=== PATIENT | male | born 1945 | race Caucasian/White ===

== ENCOUNTER 2018-06-11 10:54 | Inpatient (IN) ==
[2018-06-11] MEDS ORDERED: ONDANSETRON 4 MG/2 ML VIAL IV PRN (13:21)
[2018-06-11] MEDS ORDERED: ACETAMINOPHEN 325 MG TABLET PO PRN (13:21)
[2018-06-11 15:03] LABS: Apearance,Urine Slightly Hazy (Clear); Bilirubin,Urine Negative (Negative); Blood, Urine Negative (Negative); Glucose,Urine (UA) Negative (Negative); Hyaline Casts,Urine 22 /LPF (0-3); Ketones,Urine Negative (Negative); Mucus,Urine Occasional /LPF (Occasional); Nitrite,Urine Negative (Negative); Protein,Urine 100 MG/DL; RBC,Urine 1 /HPF (0-4); Squamous Epithelial Cell,Urine Occasional /HPF (0-10); Urine Color Amber (Yellow); Urine Specific Gravity 1.014 (1.001-1.035); WBC,Urine 5 /HPF (0-6)
[2018-06-11] MEDS: SODIUM CHLORIDE 0.9% 1,000 ML IV SCH (16:07)
[2018-06-11 16:59] LABS: Basophils % 0.3 % (0.0-0.8); Eosinophils # 0.1 10*3/uL (0.0-0.87); Hemoglobin 11.5 GM/DL (14.0-18.0); Immature Granulocytes % 0.9 %; Immature Granulocytes Absolute 0.09 #; Lymphocytes # 1.7 10*3/uL (1.4-4.0); Lymphocytes % 16.7 % (21.2-54.2); Mean Corpuscular HGB Conc 34.8 GM/DL (32-36); Mean Corpuscular Hemoglobin 34 PG (27-34); Mean Corpuscular Volume 98.2 FL (87-102); Mean Platelet Volume 11.5 FL (9.6-12.0); Monocytes # 0.7 10*3/uL (0.11-0.8); Neutrophils # 7.5 10*3/uL (1.4-7.4); Neutrophils % 74.1 % (38.7-73.9); Platelet Count 165 T/CUMM (130-400); Red Blood Count 3.36 MC/CUMM (3.8-5.5); Red Cell Distribution Width 13.8 % (9.3-17.3); White Blood Count 10.1 T/CUMM (4-12)
[2018-06-11 17:18] LABS: Bilirubin,Total 0.6 MG/DL (0.2-1.0); Calcium 9.2 MG/DL (8.5-10.1); Osmolality,Calculated 289.2 MOS/KG (273-304); Potassium 3.7 MMOL/L (3.5-5.1); Total Protein 6.9 G/DL (6.4-8.3)
[2018-06-11] MEDS: DONEPEZIL HCL 10 MG PO SCH (21:39)
[2018-06-11] MEDS: MEMANTINE HCL 5 MG PO SCH (21:40)
[2018-06-11] MEDS: APIXABAN 2.5 MG PO SCH (21:40)
[2018-06-11] MEDS: ATORVASTATIN 20 MG PO SCH (21:41)
[2018-06-11] MEDS: DOCUSATE SODIUM 100 MG CAPSULE PO SCH (21:41)
[2018-06-12] MEDS: SODIUM CHLORIDE 0.9% 1,000 ML IV SCH ×2 (03:10→17:21)
[2018-06-12 05:18] LABS: Basophils # 0.1 10*3/uL (0.0-0.2); Basophils % 0.6 % (0.0-0.8); Eosinophils # 0.2 10*3/uL (0.0-0.87); Hematocrit 31.5 VOL% (42.0-52.0); Hemoglobin 10.8 GM/DL (14.0-18.0); Immature Granulocytes % 0.7 %; Immature Granulocytes Absolute 0.06 #; Lymphocytes # 1.7 10*3/uL (1.4-4.0); Lymphocytes % 19.1 % (21.2-54.2); Mean Corpuscular HGB Conc 34.3 GM/DL (32-36); Mean Corpuscular Hemoglobin 34 PG (27-34); Mean Corpuscular Volume 99.4 FL (87-102); Mean Platelet Volume 11.7 FL (9.6-12.0); Monocytes # 0.7 10*3/uL (0.11-0.8); Monocytes % 8.1 % (1.7-12.7); Neutrophils # 6.3 10*3/uL (1.4-7.4); Neutrophils % 69.5 % (38.7-73.9); Platelet Count 174 T/CUMM (130-400); Red Blood Count 3.17 MC/CUMM (3.8-5.5); Red Cell Distribution Width 13.6 % (9.3-17.3)
[2018-06-12 05:56] LABS: Potassium 3.3 MMOL/L (3.5-5.1)
[2018-06-12] MEDS: LEVOTHYROXINE 75 MCG PO SCH (06:26)
[2018-06-12] MEDS: DOCUSATE SODIUM 100 MG CAPSULE PO SCH ×2 (08:43→21:02)
[2018-06-12] MEDS: ALLOPURINOL 300 MG PO SCH (08:43)
[2018-06-12] MEDS: DILTIAZEM PO SCH (08:45)
[2018-06-12] MEDS: [UNRECOGNIZED DRUG - OTHER] PO SCH (08:45)
[2018-06-12] MEDS: TAMSULOSIN HCL 0.4 MG PO SCH (08:46)
[2018-06-12] MEDS: MEMANTINE HCL 5 MG PO SCH ×2 (08:46→21:01)
[2018-06-12] MEDS: APIXABAN 2.5 MG PO SCH ×2 (08:47→21:01)
[2018-06-12] MEDS: VITAMIN D3 2000 UNIT PO SCH (08:47)
[2018-06-12] MEDS: METOPROLOL SUCCINATE 100 MG PO SCH (08:48)
[2018-06-12] MEDS ORDERED: FUROSEMIDE 40 MG PO SCH (09:00)
[2018-06-12] MEDS ORDERED: LOSARTAN HCTZ PO SCH (09:00)
[2018-06-12] MEDS: POTASSIUM CHLORIDE 20 MEQ TABLET PO PRN ×3 (17:22→21:02)
[2018-06-12] MEDS: ATORVASTATIN 20 MG PO SCH (21:01)
[2018-06-12] MEDS: DONEPEZIL HCL 10 MG PO SCH (21:02)
[2018-06-13 04:38] LABS: Basophils % 0.4 % (0.0-0.8); Eosinophils # 0.3 10*3/uL (0.0-0.87); Eosinophils % 3.5 % (0.00-10.9); Hematocrit 33.3 VOL% (42.0-52.0); Hemoglobin 11.3 GM/DL (14.0-18.0); Immature Granulocytes % 0.4 %; Immature Granulocytes Absolute 0.03 #; Lymphocytes # 1.7 10*3/uL (1.4-4.0); Lymphocytes % 19.4 % (21.2-54.2); Mean Corpuscular HGB Conc 33.9 GM/DL (32-36); Mean Corpuscular Hemoglobin 34 PG (27-34); Mean Corpuscular Volume 98.8 FL (87-102); Mean Platelet Volume 11.4 FL (9.6-12.0); Monocytes # 0.6 10*3/uL (0.11-0.8); Monocytes % 7.3 % (1.7-12.7); Neutrophils # 5.9 10*3/uL (1.4-7.4); Platelet Count 192 T/CUMM (130-400); Red Blood Count 3.37 MC/CUMM (3.8-5.5); Red Cell Distribution Width 13.8 % (9.3-17.3); White Blood Count 8.5 T/CUMM (4-12)
[2018-06-13 04:59] LABS: Calcium 9.2 MG/DL (8.5-10.1); Osmolality,Calculated 290.7 MOS/KG (273-304)
[2018-06-13] MEDS: LEVOTHYROXINE 75 MCG PO SCH (06:15)
[2018-06-13] MEDS: SODIUM CHLORIDE 0.9% 1,000 ML IV SCH ×2 (06:45→16:07)
[2018-06-13] MEDS: MEMANTINE HCL 5 MG PO SCH ×2 (09:17→22:18)
[2018-06-13] MEDS: ALLOPURINOL 300 MG PO SCH (09:18)
[2018-06-13] MEDS: APIXABAN 2.5 MG PO SCH ×2 (09:18→22:15)
[2018-06-13] MEDS: VITAMIN D3 2000 UNIT PO SCH (09:19)
[2018-06-13] MEDS: DILTIAZEM PO SCH (09:19)
[2018-06-13] MEDS: TAMSULOSIN HCL 0.4 MG PO SCH (09:19)
[2018-06-13] MEDS: [UNRECOGNIZED DRUG - OTHER] PO SCH (09:19)
[2018-06-13] MEDS: METOPROLOL SUCCINATE 100 MG PO SCH (09:20)
[2018-06-13] MEDS: DOCUSATE SODIUM 100 MG CAPSULE PO SCH ×2 (09:20→22:13)
[2018-06-13 12:00] LABS: Calcium 9.2 MG/DL (8.5-10.1); Osmolality,Calculated 287.8 MOS/KG (273-304); Potassium 3.8 MMOL/L (3.5-5.1)
[2018-06-13] MEDS: ATORVASTATIN 20 MG PO SCH (22:18)
[2018-06-13] MEDS: DONEPEZIL HCL 10 MG PO SCH (22:23)
[2018-06-14] MEDS: SODIUM CHLORIDE 0.9% 1,000 ML IV SCH (00:13)
[2018-06-14 05:35] LABS: Osmolality,Calculated 288.4 MOS/KG (273-304); Potassium 3.8 MMOL/L (3.5-5.1)
[2018-06-14] MEDS: LEVOTHYROXINE 75 MCG PO SCH (07:56)
[2018-06-14 07:59] VITALS: BP 132/93
[2018-06-14] MEDS: MEMANTINE HCL 5 MG PO SCH (10:11)
[2018-06-14] MEDS: ALLOPURINOL 300 MG PO SCH (10:12)
[2018-06-14] MEDS: VITAMIN D3 2000 UNIT PO SCH (10:12)
[2018-06-14] MEDS: TAMSULOSIN HCL 0.4 MG PO SCH (10:12)
[2018-06-14] MEDS: APIXABAN 2.5 MG PO SCH (10:13)
[2018-06-14] MEDS: DILTIAZEM PO SCH (10:13)
[2018-06-14] MEDS: [UNRECOGNIZED DRUG - OTHER] PO SCH (10:13)
[2018-06-14] MEDS: METOPROLOL SUCCINATE 100 MG PO SCH (10:14)
[2018-06-15] MEDS ORDERED: LEVOTHYROXINE 50 MCG PO SCH (06:30)
== END 2018-06-14 10:30 | disposition home or self-care (01) | DRG 683 ==
LOC: N.CT 10:54 → N.2E 10:54 → N.2W 14:10 → N.2E 14:54
PROVIDERS: ADMIT Family Medicine; ATTEND Family Medicine

== ENCOUNTER 2018-08-23 11:01 | Inpatient (IN) ==
[2018-08-23] MEDS ORDERED: DILTIAZEM 50 MG/10 ML VIAL IV ONE (11:19)
[2018-08-23] MEDS ORDERED: ALBUTEROL/IPRATROPIUM 3 ML NEB RESP TX STA (11:25)
[2018-08-23] MEDS ORDERED: FUROSEMIDE 100 MG/10 ML VIAL IV STA (11:25)
[2018-08-23] MEDS ORDERED: ONDANSETRON 4 MG/2 ML VIAL IV STA (11:25)
[2018-08-23] MEDS ORDERED: DILTIAZEM 50 MG/10 ML VIAL IV STA ×2 (11:25→13:28)
[2018-08-23 11:43] LABS: Basophils % 0.6 % (0.0-0.8); Eosinophils % 0.6 % (0.00-10.9); Hematocrit 35.3 VOL% (42.0-52.0); Hemoglobin 11.5 GM/DL (14.0-18.0); Immature Granulocytes % 0.4 %; Immature Granulocytes Absolute 0.03 #; Lymphocytes # 1.1 10*3/uL (1.4-4.0); Lymphocytes % 16.1 % (21.2-54.2); Mean Corpuscular HGB Conc 32.6 GM/DL (32-36); Mean Corpuscular Hemoglobin 33 PG (27-34); Mean Corpuscular Volume 101.7 FL (87-102); Mean Platelet Volume 11.7 FL (9.6-12.0); Monocytes # 0.5 10*3/uL (0.11-0.8); Monocytes % 6.5 % (1.7-12.7); Neutrophils # 5.2 10*3/uL (1.4-7.4); Neutrophils % 75.8 % (38.7-73.9); Platelet Count 142 T/CUMM (130-400); Red Blood Count 3.47 MC/CUMM (3.8-5.5); Red Cell Distribution Width 14.7 % (9.3-17.3); White Blood Count 6.9 T/CUMM (4-12)
[2018-08-23 11:51] LABS: INR 1.1; PT Patient Result 12.3 SECS
[2018-08-23] MEDS: dilTIAZem Drip 125 MG/125 ML PREMIX IV SCH ×2 (11:59→20:20)
[2018-08-23 12:06] LABS: Albumin 3.2 G/DL (3.4-5.0); Bilirubin,Total 0.9 MG/DL (0.2-1.0); Calcium 8.7 MG/DL (8.5-10.1); Osmolality,Calculated 281.8 MOS/KG (273-304); Potassium 4.2 MMOL/L (3.5-5.1); Total Protein 6.3 G/DL (6.4-8.3)
[2018-08-23] MEDS ORDERED: MORPHINE 4 MG/1 ML VIAL IV PRN (15:49)
[2018-08-23] MEDS ORDERED: ACETAMINOPHEN 325 MG TABLET PO PRN (15:49)
[2018-08-23] MEDS ORDERED: ONDANSETRON 4 MG/2 ML VIAL IV PRN (15:49)
[2018-08-23] MEDS ORDERED: SODIUM CHLORIDE 0.9% 1,000 ML IV SCH (15:49)
[2018-08-23] MEDS: DOCUSATE SODIUM 100 MG CAPSULE PO SCH (20:44)
[2018-08-23] MEDS: MEMANTINE 5 MG TABLET PO SCH (20:44)
[2018-08-23] MEDS: ATORVASTATIN 20 MG TABLET PO SCH (20:44)
[2018-08-23] MEDS: APIXABAN 2.5 MG TABLET PO SCH (20:44)
[2018-08-23] MEDS: DONEPEZIL 10 MG TABLET PO SCH (20:44)
[2018-08-24 05:28] LABS: Basophils % 0.5 % (0.0-0.8); Eosinophils # 0.2 10*3/uL (0.0-0.87); Eosinophils % 2.6 % (0.00-10.9); Hematocrit 33.8 VOL% (42.0-52.0); Hemoglobin 10.9 GM/DL (14.0-18.0); Immature Granulocytes % 0.3 %; Immature Granulocytes Absolute 0.02 #; Lymphocytes # 1.2 10*3/uL (1.4-4.0); Mean Corpuscular HGB Conc 32.2 GM/DL (32-36); Mean Corpuscular Hemoglobin 33 PG (27-34); Mean Corpuscular Volume 101.5 FL (87-102); Mean Platelet Volume 11.6 FL (9.6-12.0); Monocytes # 0.5 10*3/uL (0.11-0.8); Neutrophils # 4.5 10*3/uL (1.4-7.4); Neutrophils % 69.6 % (38.7-73.9); Platelet Count 133 T/CUMM (130-400); Red Blood Count 3.33 MC/CUMM (3.8-5.5); Red Cell Distribution Width 14.8 % (9.3-17.3); White Blood Count 6.5 T/CUMM (4-12)
[2018-08-24 05:49] LABS: Albumin 2.8 G/DL (3.4-5.0); Bilirubin,Total 1.3 MG/DL (0.2-1.0); Calcium 8.4 MG/DL (8.5-10.1); Osmolality,Calculated 285.4 MOS/KG (273-304); Potassium 4.2 MMOL/L (3.5-5.1); Risk Ratio 2.17; Total Protein 5.6 G/DL (6.4-8.3); VLDL CHOLESTEROL 15.4 MG/DL
[2018-08-24] MEDS: LEVOTHYROXINE 50 MCG TABLET PO SCH (06:28)
[2018-08-24] MEDS: METOPROLOL SUCCINATE XL 100 MG TABLET PO SCH (08:27)
[2018-08-24] MEDS: ALLOPURINOL 300 MG TABLET PO SCH (08:27)
[2018-08-24] MEDS: CALCITRIOL 0.25 MCG CAPSULE PO SCH (08:27)
[2018-08-24] MEDS: DOCUSATE SODIUM 100 MG CAPSULE PO SCH ×2 (08:27→20:28)
[2018-08-24] MEDS: PANTOPRAZOLE 40 MG TABLET PO SCH (08:27)
[2018-08-24] MEDS: CHOLECALCIFEROL 1,000 UNIT TABLET PO SCH (08:27)
[2018-08-24] MEDS: DILTIAZEM CD 240 MG CAPSULE PO SCH (08:28)
[2018-08-24] MEDS: TAMSULOSIN 0.4 MG CAPSULE PO SCH (08:28)
[2018-08-24] MEDS: MEMANTINE 5 MG TABLET PO SCH ×2 (08:28→20:28)
[2018-08-24] MEDS: APIXABAN 2.5 MG TABLET PO SCH ×2 (08:28→20:28)
[2018-08-24] MEDS: POTASSIUM CHLORIDE 20 MEQ TABLET PO SCH (08:28)
[2018-08-24] MEDS ORDERED: FUROSEMIDE 40 MG/4 ML VIAL IV ONE (09:46)
[2018-08-24] MEDS ORDERED: GLUCAGON 1 MG VIAL IM PRN (10:57)
[2018-08-24] MEDS ORDERED: DEXTROSE 50% 25 GM/50 ML VIAL IV PRN (10:57)
[2018-08-24] MEDS: dilTIAZem Drip 125 MG/125 ML PREMIX IV SCH (15:15)
[2018-08-24] MEDS: DONEPEZIL 10 MG TABLET PO SCH (20:28)
[2018-08-24] MEDS: ATORVASTATIN 20 MG TABLET PO SCH (20:28)
[2018-08-25 05:04] LABS: Basophils % 0.4 % (0.0-0.8); Eosinophils # 0.2 10*3/uL (0.0-0.87); Eosinophils % 3.2 % (0.00-10.9); Hematocrit 35.9 VOL% (42.0-52.0); Hemoglobin 11.3 GM/DL (14.0-18.0); Immature Granulocytes % 0.3 %; Immature Granulocytes Absolute 0.02 #; Lymphocytes # 1.9 10*3/uL (1.4-4.0); Lymphocytes % 27.7 % (21.2-54.2); Mean Corpuscular HGB Conc 31.5 GM/DL (32-36); Mean Corpuscular Hemoglobin 32 PG (27-34); Mean Corpuscular Volume 100.8 FL (87-102); Mean Platelet Volume 11.4 FL (9.6-12.0); Monocytes # 0.5 10*3/uL (0.11-0.8); Neutrophils # 4.2 10*3/uL (1.4-7.4); Neutrophils % 61.4 % (38.7-73.9); Platelet Count 148 T/CUMM (130-400); Red Blood Count 3.56 MC/CUMM (3.8-5.5); Red Cell Distribution Width 14.6 % (9.3-17.3); White Blood Count 6.8 T/CUMM (4-12)
[2018-08-25 05:10] LABS: Calcium 8.5 MG/DL (8.5-10.1); Osmolality,Calculated 282.7 MOS/KG (273-304); Potassium 4.4 MMOL/L (3.5-5.1)
[2018-08-25] MEDS: LEVOTHYROXINE 50 MCG TABLET PO SCH (06:13)
[2018-08-25] MEDS: CHOLECALCIFEROL 1,000 UNIT TABLET PO SCH (08:54)
[2018-08-25] MEDS: ALLOPURINOL 300 MG TABLET PO SCH (08:54)
[2018-08-25] MEDS: CALCITRIOL 0.25 MCG CAPSULE PO SCH (08:54)
[2018-08-25] MEDS: MEMANTINE 5 MG TABLET PO SCH ×2 (08:54→21:16)
[2018-08-25] MEDS: DILTIAZEM CD 240 MG CAPSULE PO SCH (08:55)
[2018-08-25] MEDS: APIXABAN 2.5 MG TABLET PO SCH ×2 (08:55→21:15)
[2018-08-25] MEDS: METOPROLOL SUCCINATE XL 100 MG TABLET PO SCH (08:55)
[2018-08-25] MEDS: TAMSULOSIN 0.4 MG CAPSULE PO SCH (08:55)
[2018-08-25] MEDS: DOCUSATE SODIUM 100 MG CAPSULE PO SCH ×2 (08:55→21:15)
[2018-08-25] MEDS: PANTOPRAZOLE 40 MG TABLET PO SCH (08:55)
[2018-08-25] MEDS: POTASSIUM CHLORIDE 20 MEQ TABLET PO SCH (08:55)
[2018-08-25] MEDS ORDERED: FUROSEMIDE 40 MG TABLET PO SCH (09:00)
[2018-08-25 15:51] LABS: Apearance,Urine Slightly Hazy (Clear); Bacteria,Urine Occasional /HPF (Few); Bilirubin,Urine Negative (Negative); Blood, Urine Large mg/dL (Negative); Glucose,Urine (UA) 50 mg/dL (Negative); Hyaline Casts,Urine 12 /LPF (0-3); Ketones,Urine Negative (Negative); Mucus,Urine Occasional /LPF (Occasional); Nitrite,Urine Negative (Negative); Protein,Urine 100 MG/DL; RBC,Urine 155 /HPF (0-4); Urine Color Yellow (Yellow); Urine Specific Gravity 1.013 (1.001-1.035); Urine Urobilinogen < 2.0 EU/DL (0.2-1.0); WBC,Urine 16 /HPF (0-6)
[2018-08-25] MEDS: dilTIAZem Drip 125 MG/125 ML PREMIX IV SCH (21:15)
[2018-08-25] MEDS: DONEPEZIL 10 MG TABLET PO SCH (21:15)
[2018-08-25] MEDS: ATORVASTATIN 20 MG TABLET PO SCH (21:16)
[2018-08-25] MEDS ORDERED: LEVOFLOXACIN INJ 250 MG in PREMIX 1 EACH IV SCH (23:30)
[2018-08-26] MEDS: metroNIDAZOLE INJ 250 MG in IV BAG 1 EACH IV SCH ×2 (00:36→08:05)
[2018-08-26 04:34] LABS: Basophils % 0.6 % (0.0-0.8); Eosinophils # 0.3 10*3/uL (0.0-0.87); Eosinophils % 4.1 % (0.00-10.9); Hematocrit 34.9 VOL% (42.0-52.0); Hemoglobin 11.1 GM/DL (14.0-18.0); Immature Granulocytes % 0.3 %; Immature Granulocytes Absolute 0.02 #; Lymphocytes # 1.5 10*3/uL (1.4-4.0); Lymphocytes % 24.4 % (21.2-54.2); Mean Corpuscular HGB Conc 31.8 GM/DL (32-36); Mean Corpuscular Hemoglobin 32 PG (27-34); Mean Corpuscular Volume 101.7 FL (87-102); Mean Platelet Volume 11.6 FL (9.6-12.0); Monocytes # 0.4 10*3/uL (0.11-0.8); Monocytes % 7.1 % (1.7-12.7); Neutrophils # 3.9 10*3/uL (1.4-7.4); Neutrophils % 63.5 % (38.7-73.9); Platelet Count 160 T/CUMM (130-400); Red Blood Count 3.43 MC/CUMM (3.8-5.5); Red Cell Distribution Width 14.6 % (9.3-17.3); White Blood Count 6.2 T/CUMM (4-12)
[2018-08-26 04:57] LABS: Calcium 8.6 MG/DL (8.5-10.1); Osmolality,Calculated 279.8 MOS/KG (273-304); Potassium 4.5 MMOL/L (3.5-5.1)
[2018-08-26] MEDS: LEVOTHYROXINE 50 MCG TABLET PO SCH (06:16)
[2018-08-26] MEDS: CHOLECALCIFEROL 1,000 UNIT TABLET PO SCH (08:04)
[2018-08-26] MEDS: MEMANTINE 5 MG TABLET PO SCH (08:04)
[2018-08-26] MEDS: ALLOPURINOL 300 MG TABLET PO SCH (08:04)
[2018-08-26] MEDS: CALCITRIOL 0.25 MCG CAPSULE PO SCH (08:04)
[2018-08-26] MEDS: TAMSULOSIN 0.4 MG CAPSULE PO SCH (08:05)
[2018-08-26] MEDS: PANTOPRAZOLE 40 MG TABLET PO SCH (08:05)
[2018-08-26] MEDS: DOCUSATE SODIUM 100 MG CAPSULE PO SCH (08:05)
[2018-08-26] MEDS: POTASSIUM CHLORIDE 20 MEQ TABLET PO SCH (08:05)
[2018-08-26] MEDS: DILTIAZEM CD 240 MG CAPSULE PO SCH (08:05)
[2018-08-26] MEDS: METOPROLOL SUCCINATE XL 100 MG TABLET PO SCH (08:05)
[2018-08-26] MEDS: APIXABAN 2.5 MG TABLET PO SCH (08:05)
[2018-08-26 16:01] VITALS: BP 98/59
[2018-08-27] MEDS ORDERED: LEVOTHYROXINE 75 MCG TABLET PO SCH (06:30)
== END 2018-08-26 16:04 | disposition home health service (06) | DRG 308 ==
LOC: N.ED 11:01 → N.EDINP 12:33 → N.TELEN 14:30
PROVIDERS: ADMIT Family Medicine; ATTEND Family Medicine

== ENCOUNTER 2020-02-24 18:36 | Inpatient (IN) ==
[2020-02-24] MEDS ORDERED: SODIUM CHLORIDE 0.9% 1,000 ML IV STA (19:27)
[2020-02-24] MEDS ORDERED: LORazepam 2 MG/1 ML VIAL IV STA (19:28)
[2020-02-24 20:04] LABS: Basophils % 0.5 % (0.0-0.8); Eosinophils # 0.2 10*3/uL (0.0-0.87); Eosinophils % 2.4 % (0.00-10.9); Hematocrit 43.6 VOL% (42.0-52.0); Immature Granulocytes % 0.4 %; Immature Granulocytes Absolute 0.03 #; Lymphocytes # 1.4 10*3/uL (1.4-4.0); Lymphocytes % 18.6 % (21.2-54.2); Mean Corpuscular HGB Conc 32.1 GM/DL (32-36); Mean Corpuscular Volume 100.7 FL (87-102); Mean Platelet Volume 11.2 FL (9.6-12.0); Monocytes % 7.3 % (1.7-12.7); Neutrophils % 70.8 % (38.7-73.9); Platelet Count 240 T/CUMM (130-400); Red Blood Count 4.33 MC/CUMM (3.8-5.5); Red Cell Distribution Width 15.6 % (9.3-17.3); White Blood Count 7.5 T/CUMM (4-12)
[2020-02-24 20:22] LABS: INR 1.1; PT Patient Result 11.4 SECS (9.8-11.9)
[2020-02-24 20:25] LABS: Albumin 2.7 G/DL (3.4-5.0); Bilirubin,Total 0.6 MG/DL (0.2-1.0); Calcium 9.1 MG/DL (8.5-10.1); Osmolality,Calculated 300.1 MOS/KG (273-304); Thyroid Stimulating Hormone 1.35 uIU/ml (0.358-3.74); Total Protein 6.9 G/DL (6.4-8.3)
[2020-02-24 21:25] LABS: Apearance,Urine Slightly Hazy (Clear); Bacteria,Urine Occasional /HPF (Few); Bilirubin,Urine Negative (Negative); Blood, Urine Negative (Negative); Glucose,Urine (UA) 50 mg/dL (Negative); Hyaline Casts,Urine 7 /LPF (0-3); Ketones,Urine Negative (Negative); Mucus,Urine Occasional /LPF (Occasional); Nitrite,Urine Negative (Negative); Protein,Urine 100 MG/DL; RBC,Urine 1 /HPF (0-4); Urine Color Yellow (Yellow); Urine Specific Gravity 1.018 (1.001-1.035); Urine Urobilinogen < 2.0 EU/DL (0.2-1.0); WBC,Urine 4 /HPF (0-6)
[2020-02-24] MEDS ORDERED: guaiFENesin/DM ER 600-30 MG TABLET PO PRN (21:31)
[2020-02-24] MEDS ORDERED: ONDANSETRON 4 MG/2 ML VIAL IV PRN (21:31)
[2020-02-24] MEDS ORDERED: hydrALAZINE 20 MG/1 ML VIAL IV PRN (21:31)
[2020-02-24] MEDS ORDERED: SIMETHICONE CHEW 125 MG TABLET PO PRN (21:31)
[2020-02-24] MEDS ORDERED: GLUCAGON 1 MG VIAL IM PRN (21:31)
[2020-02-24] MEDS ORDERED: ACETAMINOPHEN 325 MG TABLET PO PRN (21:31)
[2020-02-24] MEDS ORDERED: ZALEPLON 5 MG CAPSULE PO PRN (21:31)
[2020-02-24] MEDS ORDERED: ALBUTEROL 2.5 MG/3 ML NEB RESP TX PRN (21:31)
[2020-02-24] MEDS ORDERED: ALUMINUM/MAGNES/SIMETH MAX STR 30 ML UDCUP PO PRN (21:31)
[2020-02-24] MEDS ORDERED: DOCUSATE SODIUM 100 MG CAPSULE PO PRN (21:31)
[2020-02-24] MEDS ORDERED: NICOTINE 21 MG/24 HR PATCH TRANSDERM PRN (21:31)
[2020-02-24] MEDS ORDERED: CALCIUM CARBONATE CHEW 500 MG TABLET PO PRN (21:31)
[2020-02-24] MEDS ORDERED: MORPHINE 4 MG/1 ML VIAL IV PRN (21:31)
[2020-02-24] MEDS ORDERED: DEXTROSE 50% 25 GM/50 ML VIAL IV PRN (21:31)
[2020-02-24] MEDS ORDERED: SKIN HEALING OINT (AQUAPHOR) 50 GM TUBE TOP PRN (21:35)
[2020-02-24] MEDS: SODIUM CHLORIDE 0.9% 1,000 ML IV SCH (21:56)
[2020-02-24 22:02] LABS: Barbiturates Screen,Urine Negative (Negative); Benzodiazepines Screen,Urine Negative (Negative); Cannabinoid Screen,Urine Negative (Negative); Opiate Screen,Urine Negative (Negative); Phencyclidine Screen,Urine Negative (Negative)
[2020-02-25 05:36] LABS: Basophils % 0.4 % (0.0-0.8); Eosinophils # 0.2 10*3/uL (0.0-0.87); Eosinophils % 2.3 % (0.00-10.9); Hematocrit 43.4 VOL% (42.0-52.0); Hemoglobin 13.7 GM/DL (14.0-18.0); Immature Granulocytes % 0.4 %; Immature Granulocytes Absolute 0.03 #; Lymphocytes # 1.4 10*3/uL (1.4-4.0); Lymphocytes % 16.6 % (21.2-54.2); Mean Corpuscular HGB Conc 31.6 GM/DL (32-36); Mean Corpuscular Volume 102.1 FL (87-102); Monocytes % 7.1 % (1.7-12.7); Neutrophils % 73.2 % (38.7-73.9); Platelet Count 226 T/CUMM (130-400); Red Blood Count 4.25 MC/CUMM (3.8-5.5); Red Cell Distribution Width 15.4 % (9.3-17.3); White Blood Count 8.2 T/CUMM (4-12)
[2020-02-25 06:18] LABS: Calcium 9.3 MG/DL (8.5-10.1); Osmolality,Calculated 297.3 MOS/KG (273-304)
[2020-02-25] MEDS: SODIUM CHLORIDE 0.9% 1,000 ML IV SCH ×2 (07:17→18:25)
[2020-02-25 07:21] LABS: Calcium 9.1 MG/DL (8.5-10.1)
[2020-02-25] MEDS ORDERED: LORazepam 2 MG/1 ML VIAL IV ONE (07:47)
[2020-02-25] MEDS: TAMSULOSIN 0.4 MG CAPSULE PO SCH (08:12)
[2020-02-25] MEDS: diphenhydrAMINE CAP 25 MG CAPSULE PO PRN ×2 (08:12→14:54)
[2020-02-25] MEDS: MULTIVITAMIN (CENTRUM) TABLET PO SCH (08:13)
[2020-02-25] MEDS: allopurinoL 300 MG TABLET PO SCH (08:13)
[2020-02-25] MEDS: METOPROLOL SUCCINATE XL 100 MG TABLET PO SCH ×2 (08:13→23:30)
[2020-02-25] MEDS: POTASSIUM CHLORIDE 20 MEQ TABLET PO SCH (08:13)
[2020-02-25] MEDS: PANTOPRAZOLE 40 MG TABLET PO SCH (08:13)
[2020-02-25] MEDS: MEMANTINE 5 MG TABLET PO SCH ×2 (08:14→23:29)
[2020-02-25] MEDS: CHOLECALCIFEROL 1,000 UNIT TABLET PO SCH (08:14)
[2020-02-25] MEDS: calcitrioL 0.25 MCG CAPSULE PO SCH (08:14)
[2020-02-25] MEDS: APIXABAN 2.5 MG TABLET PO SCH ×2 (08:16→08:47)
[2020-02-25] MEDS: INSULIN LISPRO 100 UNIT/ML SUBCUT SCH ×4 (08:47→20:20)
[2020-02-25 08:50] LABS: Folate 10.3 NG/ML (5.4-24.0)
[2020-02-25] MEDS ORDERED: FUROSEMIDE 40 MG TABLET PO SCH (09:00)
[2020-02-25] MEDS: DESITIN 4OZ/NYSTATIN 15 GRAM MIXTURE PASTE TOP SCH ×2 (09:31→20:20)
[2020-02-25] MEDS: LEVOTHYROXINE 75 MCG TABLET PO SCH (11:35)
[2020-02-25] MEDS ORDERED: DIGOXIN 0.125 MG TABLET PO SCH (13:00)
[2020-02-25] MEDS: ENOXAPARIN 30 MG/0.3 ML SYRINGE SUBCUT SCH (14:17)
[2020-02-25] MEDS: ATORVASTATIN 20 MG TABLET PO SCH (17:17)
[2020-02-25] MEDS: GABAPENTIN 100 MG CAPSULE PO SCH ×2 (17:17→23:29)
[2020-02-25] MEDS: DONEPEZIL 10 MG TABLET PO SCH (23:26)
[2020-02-26 04:16] LABS: Basophils % 0.5 % (0.0-0.8); Eosinophils # 0.3 10*3/uL (0.0-0.87); Eosinophils % 3.1 % (0.00-10.9); Hematocrit 40.9 VOL% (42.0-52.0); Hemoglobin 12.8 GM/DL (14.0-18.0); Immature Granulocytes % 0.4 %; Immature Granulocytes Absolute 0.03 #; Lymphocytes # 1.9 10*3/uL (1.4-4.0); Lymphocytes % 22.9 % (21.2-54.2); Mean Corpuscular HGB Conc 31.3 GM/DL (32-36); Mean Corpuscular Volume 102.5 FL (87-102); Mean Platelet Volume 11.3 FL (9.6-12.0); Monocytes % 10.9 % (1.7-12.7); Neutrophils % 62.2 % (38.7-73.9); Platelet Count 203 T/CUMM (130-400); Red Blood Count 3.99 MC/CUMM (3.8-5.5); Red Cell Distribution Width 15.4 % (9.3-17.3); White Blood Count 8.3 T/CUMM (4-12)
[2020-02-26 04:40] LABS: Calcium 9.2 MG/DL (8.5-10.1); Osmolality,Calculated 293.8 MOS/KG (273-304)
[2020-02-26] MEDS: SODIUM CHLORIDE 0.9% 1,000 ML IV SCH (06:10)
[2020-02-26] MEDS: TAMSULOSIN 0.4 MG CAPSULE PO SCH (08:26)
[2020-02-26] MEDS: POTASSIUM CHLORIDE 20 MEQ TABLET PO SCH (08:26)
[2020-02-26] MEDS: allopurinoL 300 MG TABLET PO SCH (08:26)
[2020-02-26] MEDS: METOPROLOL SUCCINATE XL 100 MG TABLET PO SCH (08:26)
[2020-02-26] MEDS: MULTIVITAMIN (CENTRUM) TABLET PO SCH (08:26)
[2020-02-26] MEDS: CHOLECALCIFEROL 1,000 UNIT TABLET PO SCH (08:26)
[2020-02-26] MEDS: ASPIRIN EC 81 MG TABLET PO SCH (08:26)
[2020-02-26] MEDS: calcitrioL 0.25 MCG CAPSULE PO SCH (08:26)
[2020-02-26] MEDS: MEMANTINE 5 MG TABLET PO SCH (08:26)
[2020-02-26] MEDS: PANTOPRAZOLE 40 MG TABLET PO SCH (08:26)
[2020-02-26] MEDS: LEVOTHYROXINE 75 MCG TABLET PO SCH (10:53)
[2020-02-26] MEDS: INSULIN LISPRO 100 UNIT/ML SUBCUT SCH ×2 (13:22→18:23)
[2020-02-26] MEDS: ENOXAPARIN 30 MG/0.3 ML SYRINGE SUBCUT SCH (14:02)
[2020-02-26] MEDS: DESITIN 4OZ/NYSTATIN 15 GRAM MIXTURE PASTE TOP SCH (14:03)
[2020-02-26] MEDS: GABAPENTIN 100 MG CAPSULE PO SCH (18:22)
[2020-02-26] MEDS: ATORVASTATIN 20 MG TABLET PO SCH (18:23)
[2020-02-26] MEDS: LORazepam 2 MG/1 ML VIAL IV PRN (19:44)
[2020-02-27] MEDS: INSULIN LISPRO 100 UNIT/ML SUBCUT SCH ×5 (00:04→21:41)
[2020-02-27] MEDS: MEMANTINE 5 MG TABLET PO SCH ×3 (00:04→21:42)
[2020-02-27] MEDS: DONEPEZIL 10 MG TABLET PO SCH ×2 (00:04→21:41)
[2020-02-27] MEDS: GABAPENTIN 100 MG CAPSULE PO SCH ×3 (00:04→21:42)
[2020-02-27] MEDS: METOPROLOL SUCCINATE XL 100 MG TABLET PO SCH ×3 (00:05→21:42)
[2020-02-27] MEDS: DESITIN 4OZ/NYSTATIN 15 GRAM MIXTURE PASTE TOP SCH ×3 (00:05→21:42)
[2020-02-27] MEDS: LORazepam 2 MG/1 ML VIAL IV PRN ×3 (05:24→22:18)
[2020-02-27 05:33] LABS: Basophils % 0.5 % (0.0-0.8); Eosinophils # 0.3 10*3/uL (0.0-0.87); Eosinophils % 4.4 % (0.00-10.9); Hematocrit 38.8 VOL% (42.0-52.0); Hemoglobin 12.4 GM/DL (14.0-18.0); Immature Granulocytes % 0.3 %; Immature Granulocytes Absolute 0.02 #; Lymphocytes # 1.4 10*3/uL (1.4-4.0); Lymphocytes % 23.6 % (21.2-54.2); Mean Corpuscular Volume 101.6 FL (87-102); Mean Platelet Volume 11.2 FL (9.6-12.0); Monocytes % 8.4 % (1.7-12.7); Neutrophils % 62.8 % (38.7-73.9); Platelet Count 212 T/CUMM (130-400); Red Blood Count 3.82 MC/CUMM (3.8-5.5); Red Cell Distribution Width 15.3 % (9.3-17.3); White Blood Count 6.1 T/CUMM (4-12)
[2020-02-27 05:56] LABS: Osmolality,Calculated 295.7 MOS/KG (273-304)
[2020-02-27] MEDS ORDERED: DIGOXIN 0.125 MG TABLET PO SCH ×2 (09:00)
[2020-02-27] MEDS: SODIUM CHLORIDE 0.9% 1,000 ML IV SCH ×3 (09:54→23:15)
[2020-02-27] MEDS: MULTIVITAMIN (CENTRUM) TABLET PO SCH (15:03)
[2020-02-27] MEDS: POTASSIUM CHLORIDE 20 MEQ TABLET PO SCH (15:03)
[2020-02-27] MEDS: TAMSULOSIN 0.4 MG CAPSULE PO SCH (15:03)
[2020-02-27] MEDS: ASPIRIN EC 81 MG TABLET PO SCH (15:03)
[2020-02-27] MEDS: allopurinoL 300 MG TABLET PO SCH (15:04)
[2020-02-27] MEDS: LEVOTHYROXINE 75 MCG TABLET PO SCH (15:04)
[2020-02-27] MEDS: CHOLECALCIFEROL 1,000 UNIT TABLET PO SCH (15:04)
[2020-02-27] MEDS: calcitrioL 0.25 MCG CAPSULE PO SCH (15:04)
[2020-02-27] MEDS: PANTOPRAZOLE 40 MG TABLET PO SCH (15:04)
[2020-02-27] MEDS: ENOXAPARIN 30 MG/0.3 ML SYRINGE SUBCUT SCH (16:19)
[2020-02-27] MEDS ORDERED: HALOPERIDOL 5 MG/ML AMP IV ONE (17:00)
[2020-02-27] MEDS: ATORVASTATIN 20 MG TABLET PO SCH (18:17)
[2020-02-28 06:03] LABS: Basophils % 0.4 % (0.0-0.8); Eosinophils # 0.1 10*3/uL (0.0-0.87); Eosinophils % 2.6 % (0.00-10.9); Immature Granulocytes % 0.4 %; Immature Granulocytes Absolute 0.02 #; Lymphocytes % 18.9 % (21.2-54.2); Mean Corpuscular HGB Conc 32.5 GM/DL (32-36); Mean Platelet Volume 11.3 FL (9.6-12.0); Monocytes % 8.2 % (1.7-12.7); Neutrophils % 69.5 % (38.7-73.9); Platelet Count 207 T/CUMM (130-400); Red Blood Count 4.08 MC/CUMM (3.8-5.5); Red Cell Distribution Width 14.9 % (9.3-17.3); White Blood Count 5.5 T/CUMM (4-12)
[2020-02-28] MEDS ORDERED: LEVOTHYROXINE 50 MCG TABLET PO SCH (06:30)
[2020-02-28 06:33] LABS: Calcium 9.8 MG/DL (8.5-10.1); Osmolality,Calculated 293.6 MOS/KG (273-304)
[2020-02-28] MEDS: INSULIN LISPRO 100 UNIT/ML SUBCUT SCH ×2 (07:53→13:07)
[2020-02-28] MEDS: ASPIRIN EC 81 MG TABLET PO SCH (08:42)
[2020-02-28] MEDS: MEMANTINE 5 MG TABLET PO SCH (08:42)
[2020-02-28] MEDS: METOPROLOL SUCCINATE XL 100 MG TABLET PO SCH (08:42)
[2020-02-28] MEDS: LORazepam 2 MG/1 ML VIAL IV PRN (08:57)
[2020-02-28] MEDS: TAMSULOSIN 0.4 MG CAPSULE PO SCH (09:03)
[2020-02-28] MEDS: allopurinoL 300 MG TABLET PO SCH (09:03)
[2020-02-28] MEDS: PANTOPRAZOLE 40 MG TABLET PO SCH (09:03)
[2020-02-28] MEDS: CHOLECALCIFEROL 1,000 UNIT TABLET PO SCH (09:03)
[2020-02-28] MEDS: POTASSIUM CHLORIDE 20 MEQ TABLET PO SCH (09:03)
[2020-02-28] MEDS: DESITIN 4OZ/NYSTATIN 15 GRAM MIXTURE PASTE TOP SCH (09:03)
[2020-02-28] MEDS: calcitrioL 0.25 MCG CAPSULE PO SCH (09:03)
[2020-02-28] MEDS: MULTIVITAMIN (CENTRUM) TABLET PO SCH (09:03)
[2020-02-28] MEDS: diphenhydrAMINE CAP 25 MG CAPSULE PO PRN (09:47)
[2020-02-28 11:52] VITALS: BP 142/66
[2020-02-28] MEDS: SODIUM CHLORIDE 0.9% 1,000 ML IV SCH (13:08)
[2020-02-28] MEDS: ENOXAPARIN 30 MG/0.3 ML SYRINGE SUBCUT SCH (13:34)
== END 2020-02-28 13:50 | disposition hospice, home (50) | DRG 682 ==
LOC: EDUNIT# → EDBD → N.ED 18:36 → SUATTDRO 21:31 → N.EDINP 21:31 → N.TELES 23:32
PROVIDERS: ADMIT Internal Medicine; ATTEND Emergency Medicine